=== PATIENT | male | born 1975 | race American Indian/Alaskan Native ===

== ENCOUNTER 2019-06-22 20:26 | Emergency (ER) | payer BC, OTHER ==
--- NOTE | 2019-06-23 01:37 | Emergency Department Report ---
HPI - General Chief Complaint: Sore Throat Time Seen by Provider: 06/23/19 01:31 - HPI HPI: 44-year-old -Irish male presents to the emergency department with a complaint of a 2 to 3-day history of sore throat, nasal congestion, facial pain. Patient denies any past medical history. He has not taken anything for his symptoms prior to presentation. He is a tobacco smoker. No recent travel or sick contacts at home. ED Past Medical Hx - Past Medical History Previous Medical History?: No - Surgical History Past Surgical History?: No - Social History Smoking Status: Former Smoker - Medications Home Medications: Home Medications Medication Instructions Recorded Confirmed Last Taken Type Ergocalciferol [Vitamin D2] 1 cap PO QWEEK 09/19/14 09/27/14 09/24/14 History Loratadine (Nf) [Claritin (Nf)] 10 mg PO DAILY 09/19/14 09/27/14 7 Months Ago History ~02/27/14 Acetaminophen/Codeine [Tylenol #3] 1 - 2 tab PO Q4-6H PRN #30 tablet 09/27/14 Unknown Rx Docusate Sodium [Colace] 100 mg PO BID PRN #30 capsule 09/27/14 Unknown Rx Azithromycin [Zithromax Z-NITZA] 250 mg PO DAILY #6 tab 06/23/19 Unknown Rx Fluticasone [Flonase] 1 spray NS QDAY #1 bottle 06/23/19 Unknown Rx ED Review of Systems ROS: Stated complaint: SORE THROAT W/ CHILLS Other details as noted in HPI Comment: All other systems reviewed and negative Constitutional: denies: chills, fever Eyes: denies: eye pain, vision change ENT: throat pain, congestion. denies: ear pain Respiratory: denies: cough, shortness of breath Cardiovascular: denies: chest pain, palpitations Neurological: denies: headache, weakness Physical Exam - Physical Exam Physical Exam: GENERAL: The patient is well-developed well-nourished. HENT: Normocephalic. Atraumatic. Patient has moist mucous membranes. Oropharynx is clear. Boggy nasal mucosa. There is some tenderness to palpation over the sinuses. EYES: Extraocular motions are intact. Pupils equal reactive to light bilaterally. NECK: Supple. Trachea is midline. CHEST/LUNGS: Clear to auscultation. There is no respiratory distress noted. HEART/CARDIOVASCULAR: Regular. There is no tachycardia. SKIN: Skin is warm and dry. NEURO: The patient is awake, alert, and oriented. The patient is cooperative. Normal speech. MUSCULOSKELETAL: There is no tenderness or deformity. There is no evidence of acute injury. ED Medical Decision Making - Medical Decision Making Patient presents with a 2 to 3-day history of some sinus pressure, nasal congestion, sore throat. He does not appear in any acute distress. Vital signs stable including being afebrile. He will be treated with a Z-Nitza and Flonase. He will take Tylenol and/or ibuprofen as necessary for any fever or aches. The patient is inquiring about testing for the coronavirus. It was explained to him that we are not doing this testing in the emergency department at this time. The patient was told to contact the health department and review the [facility] website. If he feels that he could have been exposed to someone with Covid-19, then the patient has been instructed to self quarantine for the next 2 weeks. However he has been instructed to return to the emergency department with any worsening of his symptoms or with any acute distress. - Differential Diagnosis Sinusitis, strep pharyngitis, viral URI Critical Care Time: No Critical care attestation.: If time is entered above; I have spent that time in minutes in the direct care of this critically ill patient, excluding procedure time. ED Disposition Clinical Impression: Sinusitis Qualifiers: Sinusitis location: unspecified location Chronicity: unspecified Qualified Code(s): J32.9 - Chronic sinusitis, unspecified Disposition: TO HOME OR SELFCARE Is pt being admited?: No Condition: Stable Instructions: Sinusitis (ED) Additional Instructions: Please follow-up with a primary care physician in the next few days. Return to the emergency department with any worsening of your symptoms or any acute distress. As you mentioned your concern for the possibility of having Covid-19, the Coronavirus, we are unable to test for that at this time. You can follow up with the CDC or the health department regarding whether or not you meet criteria for testing. If you believe you may have been exposed to someone with this virus, then it is recommended that you self quarantine for 14 days. Prescriptions: Fluticasone [Flonase] 1 spray NS QDAY #1 bottle Azithromycin [Zithromax Z-NITZA] 250 mg PO DAILY #6 tab Referrals: PRIMARY CARE, [Primary Care Provider] - 3-5 Days KAVEH SANCHEZ MD [Staff Physician] - 3-5 Days [facility] [Provider Group] - 3-5 Days Time of Disposition: 01:37
[2019-06-23 01:48] VITALS: BP 138/83
== END 2019-06-23 01:40 | disposition home or self-care (01) ==
LOC: ED 20:26
DX: J32.9 Chronic sinusitis, unspecified (principal); Z87.891 Personal history of nicotine dependence; Z79.899 Other long term (current) drug therapy; Z79.2 Long term (current) use of antibiotics
CPT/HCPCS: 99282